=== PATIENT | female | born 1990 | race Caucasian/White ===

== ENCOUNTER → 2023-07-15 | Outpatient (CLI) | payer BC, OTHER ==
--- NOTE | 2023-07-15 18:10 | CT ---
EXAMINATION TYPE: CT humerus LT wo con DATE OF EXAM: 07/15/2023 COMPARISON: None HISTORY: lump to left arm proximal to elbow CT DLP: 455.5 mGycm Automated exposure control for dose reduction was used. Contrast: None Technique: Axial images 3 mm thick sections. Reconstructed images in the normal and sagittal planes. 3-D reconstructed images performed on a separate computer by the technologist are presented. FINDINGS: No acute fractures are evident. Humeral head articulates with the glenoid. Acromiohumeral space appea rs normal. Elbow joint space appears preserved. Radius aligns normally with the humerus. No obvious r otator cuff tear is evident. No joint effusion is evident. No suspicious soft tissue abnormality is i dentified. IMPRESSION: 1. NO ABNORMALITIES TO ACCOUNT FOR THE SOFT TISSUE SWELLING. 2. OSSEOUS STRUCTURES APPEAR INTACT.
== END | disposition home or self-care (01) ==
LOC: RADCTMAIN 16:07
PROVIDERS: ATTEND Family Medicine
DX: R22.32 Localized swelling, mass and lump, left upper limb (principal)